=== PATIENT | female | born 1965 | race Caucasian/White ===

== ENCOUNTER 2021-12-01 13:22 | Emergency (ER) | payer OTHER, SELFPAY ==
--- NOTE | ~2021-12-01 | CT_ITS ---
EXAMINATION: CT abdomen pelvis w con DATE: 12/01/2021 15:14 INDICATION: Left-sided abdominal pain TECHNIQUE: Computed tomography (CT) of the abdomen and pelvis was performed with 100 cc Omnipaque 350 intravenous contrast. The dose-length product was 277.40 mGy-cm. Automated exposure control and iter ative reconstruction technique were employed. COMPARISON: Ultrasound dated 11/01/2018. FINDINGS: There are calcified granulomas in the right lung base. Heart size is normal. No significant pleural or pericardial effusion. There are calcified granulomas in the spleen. No significant vascul ar abnormality. No lymphadenopathy. There is a 1.8 x 1.3 cm hypovascular mass of the right hepatic lobe, most likely benign hemangioma, a lthough correlation with ultrasound recommended on a nonemergent basis. The pancreas, adrenal glands and kidneys are unremarkable. Gallbladder is present. No free air or free fluid. No abnormal pelvic m asses or fluid collections. No acute osseous abnormality. No focal lytic or blastic lesions. IMPRESSION: 1. No acute abdominal abnormality. 2: 1.8 x 1.3 cm hypovascular mass of the right hepatic lobe, most likely benign hemangioma, although correlation with ultrasound recommended on a nonemergent basis. Reviewed, dictated and finalized at location A. NUMBERER IMPRESSION: 1. No acute abdominal abnormality. 2: 1.8 x 1.3 cm hypovascular mass of the right hepatic lobe, most likely benig n hemangioma, although correlation with ultrasound recommended on a nonemergent basis.
[2021-12-01 13:26] VITALS: BP 142/88; PULSE 98; RESP 18; TEMP 36.6; O2SAT 99
--- NOTE | 2021-12-01 14:23 | ED.BACK ---
HPI - Back Pain/Injury General Chief Complaint: Back Pain/Injury <Ginette Doss PA-C - Last Filed: 12/01/21 16:36> Stated Complaint: left side pain <Ginette Doss PA-C - Last Filed: 12/01/21 16:36> Time Seen by Provider: 12/01/21 13:26 <Ginette Doss PA-C - Last Filed: 12/01/21 16:36> Source: patient <LIANET Sotelo Last Filed: 12/01/21 16:36> Mode of arrival: ambulatory <Ginette Doss PA-C - Last Filed: 12/01/21 16:36> Limitations: no limitations <Ginette Doss PA-C - Last Filed: 12/01/21 16:36> History of Present Illness HPI Narrative: This is a 56 year old female that presents to the ER for left flank pain present today. Reports the pain radiates to her groin. Associated with dysuria. Is worse with walking. Denies fever, vomiting, or hematuria. <Ginette Doss PA-C - Last Filed: 12/01/21 16:36> Related Data Allergies/Adverse Reactions: Allergies Allergy/AdvReac Type Severity Reaction Status Date / Time No Known Allergies Allergy Unverified 11/01/18 14:21 <Ginette Doss PA-C - Last Filed: 12/01/21 16:36> Review of Systems Review of Systems: CONSTITUTIONAL: Denies fever GASTROINTESTINAL: Reports abdominal pain. Denies nausea, vomiting GENITOURINARY: Reports dysuria. Denies hematuria. SKIN: Denies rash MUSCULOSKELETAL: Reports back pain, joint pain, and myalgia. <Ginette Doss PA-C - Last Filed: 12/01/21 16:36> All systems reviewed & are unremarkable except as noted in HPI and below <Ginette Doss PA-C - Last Filed: 12/01/21 16:36> FORMERLY [facility], [facility]–1983 Past Medical History Medical History: Medical History (Updated 12/01/21 @ 16:33 by Ginette Doss PA-C) History of atrial fibrillation History of diabetes mellitus History of hyperlipidemia History of hypertension <Ginette Doss PA-C - Last Filed: 12/01/21 16:36> Social History Social History: Social History (Updated 12/01/21 @ 14:28 by Ginette Doss PA-C) Substance use: never <Ginette Doss PA-C - Last Filed: 12/01/21 16:36> Exam Narrative: GENERAL: Well-appearing, well-nourished, and in no acute distress. HEAD: Normocephalic, atraumatic. EYES: EOMI. CHEST: Clear to auscultation. No respiratory distress. No wheezes rales or rhonchi HEART: Regular rate and rhythm. No murmur heard. Normal peripheral pulses. ABDOMEN: Soft, nontender, nondistended, normal active bowel sounds. No CVA tenderness EXTREMITIES: Normal range of motion. No edema. SKIN: Warm, dry, no rash. NEURO: No focal deficits. Alert and oriented x3. Normal gait PSYCH: Normal mood and affect <Ginette Doss PA-C - Last Filed: 12/01/21 16:36> Course Vital Signs Vital signs: Vital Signs Temperature 36.6 C 12/01/21 13:26 Pulse Rate 98 12/01/21 13:26 Respiratory Rate 18 12/01/21 13:26 Blood Pressure 142/88 H 12/01/21 13:26 Pulse Oximetry 99 12/01/21 13:26 Temperature 36.6 C 12/01/21 13:26 Pulse Rate 84 12/01/21 16:13 Respiratory Rate 18 12/01/21 16:13 Blood Pressure 158/100 H 12/01/21 16:13 Pulse Oximetry 99 12/01/21 16:13 <Ginette Doss PA-C - Last Filed: 12/01/21 16:36> MDM - Back Pain/Injury MDM Narrative Medical decision making narrative: Patient presents to the emergency department for left-sided mid back pain present today. No known injury or trauma. Patient is neurologically intact. She did also endorse some urinary discomfort. She is afebrile and nontoxic-appearing. CBC and metabolic panel without concerning findings. Lipase is normal. UA is without evidence of infection. CT scan of the abdomen and pelvis is without acute findings. Shows a 1.8 x 1.3 cm hypovascular mass in the right hepatic lobe which is most likely a benign hemangioma. Recommend follow-up nonemergent ultrasound. Patient was updated on case findings. She is stable and felt appropriate for further outpatient evaluation. Instructed to take [id number]
[2021-12-01] MEDS: ONDANSETRON INJ 4 MG/2 ML VIAL IV PUSH (14:30)
[2021-12-01] MEDS: SODIUM CHLORIDE 0.9% IV 1,000 ML 999 ML IV CONT (14:31)
[2021-12-01 14:34] LABS: Basophils Absolute Auto 0.1 K/mm3 (0.0-0.1); Basophils Percent Auto 1.1 % (0.2-1.2); Eosinophils Absolute Auto 0.1 K/mm3 (0-0.3); Eosinophils Percent Auto 1.3 % (0-4.4); Hematocrit 37.5 % (37.0-47.0); Hemoglobin 12.4 g/dL (12.0-15.0); Immature Granulocyte Absolute 0.03 K/mm3 (0.00-0.031); Immature Granulocyte Percent A 0.6 % (0-0.5); Lymphocytes Absolute Auto 2.21 K/mm3 (0.9-3.2); Lymphocytes Percent Auto 40.7 % (18.3-44.2); Mean Corpuscular HGB Conc 33.1 g/dl (32-36); Mean Corpuscular Hemoglobin 30.1 pg (26-34); Mean Platelet Volume 10.2 fl (7.4-10.4); Monocytes Absolute Auto 0.6 K/mm3 (0.1-0.6); Monocytes Percent Auto 11.2 % (2.6-8.5); Neutrophils Absolute Auto 2.5 K/mm3 (1.3-6.7); Neutrophils Percent Auto 45.1 % (45.5-73.1); Platelet Count Result 270 k/mm3 (150-375); Red Blood Count 4.12 M/mm3 (4.2-5.4); Red Cell Distribution Width 13.1 % (11.5-14.5); White Blood Count 5.4 K/mm3 (4.5-10.0)
[2021-12-01 14:37] LABS: Add Urine Microscopic? NO; Appearance Urine Clear (Clear); Bilirubin Urine Negative (Negative); Blood Urine Negative (Negative); Color Urine Straw (Yellow); Glucose Urine UA Negative (Negative); Ketones Urine Negative (Negative); Leukocyte Esterase Ur Negative LEU/UL (Negative); Nitrate Urine Negative (Negative); Protein Urine Negative (Negative); Specific Grav Ur 1.015 (1.001-1.035); Urobilinogen Urine Negative mg/dL (<2.0)
[2021-12-01 14:42] LABS: Alanine Aminotransferase 25 U/L (4-35); Albumin Level 4.5 g/dL (3.5-5.1); Alkaline Phosphatase 91 U/L (38-126); Anion Gap 14 mmol/L (8-16); Aspartate Amino Transferase 29 U/L (14-36); Bilirubin,Total 0.3 mg/dL (0.2-1.3); Blood Urea Nitrogen 13 mg/dL (7-17); Calcium 9.2 mg/dL (8.4-10.2); Carbon Dioxide 22 mmol/L (22-30); Chloride 103 mmol/L (98-107); Estimated CRCL calculation 60 ml/min; Estimated Glomerular Filt Rate > 60; Glucose 221 mg/dL (65-110); Sodium 139 mmol/L (137-145)
--- NOTE | 2021-12-01 16:07 | PC.NURSE ---
Called lab to add on Lipase
[2021-12-01 16:13] VITALS: BP 158/100; PULSE 84; RESP 18; O2SAT 99
[2021-12-01 16:28] LABS: Lipase 149 U/L (23-300)
== END 2021-12-01 16:52 | disposition home or self-care (01) ==
PROVIDERS: Physician Assistant; Emergency Provider Emergency Medicine; PCP Physician Assistant
DX: R10.9 Unspecified abdominal pain (principal); R16.0 Hepatomegaly, not elsewhere classified; I48.91 Unspecified atrial fibrillation; E11.9 Type 2 diabetes mellitus without complications; E78.5 Hyperlipidemia, unspecified; I10 Essential (primary) hypertension
CPT/HCPCS: 36415; 74177; 80053; 81003; 81025; 83690; 85025; 96361; 96365; 96375; 99284; J0131; J2405; J7030; Q9967